=== PATIENT | female | born 1990 | race Caucasian/White ===

== ENCOUNTER → 2017-05-25 | Outpatient (CLI) | payer BC | LOC: HPND 08:36 | PROVIDERS: ATTEND Obstetrics & Gynecology | DX: O99.340 Other mental disorders complicating pregnancy, unspecified trimester (principal) | CPT/HCPCS: 36415; 76813 ==

== ENCOUNTER → 2017-06-29 | Outpatient (CLI) | payer BC | LOC: HPND 08:33 | PROVIDERS: ATTEND Obstetrics & Gynecology | DX: O99.341 Other mental disorders complicating pregnancy, first trimester (principal); O99.321 Drug use complicating pregnancy, first trimester | CPT/HCPCS: 76811 ==